=== PATIENT | male | born 1995 | race Caucasian/White ===

== ENCOUNTER 2023-01-12 14:23 | Outpatient (AMB) | payer OTHER, SELFPAY ==
--- NOTE | 2023-01-12 14:30 | MHC.PC.OV ---
Vital Signs 01/12/23 14:33 Height 5 ft 9 in Weight 270 lb 2 oz BMI 39.9 BP 122/88 Blood Pressure Location Lt brachial Position Sitting Pulse 95 Pulse Source Pulse Oximeter Pulse Oximetry (%) 96 Oxygen Delivery Method Room Air Intake Visit Reasons: new patient Allergies No Known Allergies Allergy (Verified 01/12/23 14:44) Medication List - Last Reconciled 01/12/23 by Donaldo Batista PA-C No Known Home Meds Tobacco use date assessed: 01/12/23 Dental Screening Dental Screen Date: 01/12/23 Did you have a dental visit in the last 12 months?: Yes Did you have a dental problem in the last 6 months where you did not have access to dental care?: No Was dental information given to patient?: Patient has dentist HPI new patient HPI Details Patient is a 27-year-old male here today for new patient visit. Patient's past medical history significant for obesity. Has not seen a doctor since his pediatrics office. .. Concern--> over the last 3 years has developed a large umbilical hernia. He reports over the last several months he his umbilicus has been somewhat tender at times. He denies any bowel dysfunction. Vaccine: UTD with COVID , needs Tdap. [facility] Surgical History No pertinent past surgical history Family History Maternal Grandmother Diabetes Social History (Updated 01/12/23 @ 14:48 by Donaldo Batista PA-C) Household Members Other:: Mother Housing: Apartment Are you a primary manager home healthcare to a significant other at home: No Alcohol intake: current Alcohol intake frequency: a few times a month Patient Tobacco Use Status: Never used Tobacco service: No Current occupational status: employed Current occupation: [employer] Questionnaire PHQ-9 Over the last 2 weeks, how often have you been bothered by any of the following problems? 1. Little interest or pleasure in doing things: not at all 2. Feeling down, depressed, or hopeless: not at all 3. Trouble falling or staying asleep, or sleeping too much: not at all 4. Feeling tired or having little energy: not at all 5. Poor appetite or overeating: not at all 6. Feeling bad about yourself - or that you are a failure or have let yourself or your family down: not at all 7. Trouble concentrating on things, such as reading the newspaper or watching television: not at all 8. Moving or speaking so slowly that other people could have noticed. Or the opposite - being so fidgety or restless that you have been moving around a lot more than usual: not at all 9. Thoughts that you would be better off or of hurting yourself in some way: not at all Total score: 0 Depression Screening Interpretation: Negative 50467 - PHQ-9 Billing: Yes Source: Developed by Drs. Tito Rae, Chantel Aquino, Ricky Lawson and colleagues, with an educational renata from [employer]. Thrive Questionnaire Date Thrive assessed: 01/12/23 I am a: Patient What is your living situation today?: I have a steady place to live Within the past 12 months, did the food you bought not last and you didn't have the money to get more?: Never true Within the past 12 months, did you worry whether your food would run out before you got money to buy more?: Never true Do you have trouble paying for medicines?: No Do you have trouble getting transportation to medical appointments?: No Do you have trouble paying your heating and electricity bill?: No Do you have trouble taking care of your child, family member or friend?: No Do you have trouble with day-to-day activities such as bathing, preparing meals, shopping, managing finances, etc.?: No Are you currently unemployed and looking for a job?: No Are you interested in more education?: No Currently or been in a relationship where the following occur: no concerns reported AUDIT C Alcohol Use Questionnaire (AUDIT-C) 1. How often do you have a drink containing alcohol?: 2-3 times a week 2. How many drinks containing alcohol do you have on a typical day when you are drinking?: 1 or 2 3. How often do you have six or more drinks on one occasion?: Never Total Score: 3 TOSIN-7 AMB Questionnaire TOSIN-7 Date TOSIN - 7 assessed: 01/12/23 Feeling nervous, anxious, or on edge: 0 = Not at all Not being able to stop or control worryin = Not at all Worrying too much about different things: 0 = Not at all Trouble relaxin = Not at all Being so restless that it is hard to sit still: 0 = Not at all Becoming easily annoyed or irritable: 0 = Not at all Feeling afraid as if something awful might happen: 0 = Not at all Total TOSIN-7 score (0-4 normal; 5-9 mild; 10-14 moderate; 15-21 severe): 0 Source: Developed by Drs. Tito Rae, Chantel Aquino, Ricky Lawson and colleagues, with an educational renata from [employer]. TOSIN-7 Assessment Billing TOSIN-7 Assessment Tool: TOSIN-7 Assessment 58348 Review of Systems Const Denies headache(s) Eyes Denies loss of vision ENT Denies vertigo, Denies dizziness, Denies headache(s) and Denies sore throat Card Denies chest pain, Denies leg edema and Denies lightheadedness Resp Denies cough, Denies hemoptysis and Denies wheezing GI Denies abdominal pain, Denies melena, Denies constipation, Denies diarrhea and Denies vomiting Denies dysuria, Denies urinary frequency and Denies urinary urgency Musc Denies arthralgias, Denies joint swelling, Denies numbness and Denies tingling Neuro Denies Abnormal speech present, Denies behavioral changes, Denies vertigo, Denies dizziness, Denies headache(s), Denies loss of vision, Denies memory loss, Denies numbness and Denies tingling Psych Denies anxiety, Denies behavioral changes, Denies depression, Denies memory loss and Denies panic attacks Gurmeet/Lymph Denies easy bleeding and Denies easy bruising Aller/Immun Denies wheezing Physical exam (Primary Care) Vital Signs: Last Vital Signs Pulse 95 01/12/23 14:33 BP 122/88 01/12/23 14:33 Pulse Ox 96 01/12/23 14:33 Oxygen Delivery Method Room Air 01/12/23 14:33 BMI result Body Mass Index 39.9 BMI Assessment/Plan discussion: High Tobacco/Smoking Status: Tobacco use Status Tobacco use date assessed 01/12/23 01/12/23 14:40 Patient Tobacco Use Status Never used Tobacco 01/12/23 14:48 PHQ-9: PHQ-9 Score PHQ-9: Total score 0 01/12/23 15:00 Depression Screening Interpretation: Negative Thrive Assessment: Date of Thrive Assessment Date Thrive assessed 01/12/23 01/12/23 14:40 Currently or been in a relationship where the following occur: no concerns reported Const Other: OBESE General: healthy appearing, no acute distress, alert and awake Nutritional Appearance: well nourished Orientation/consciousness: oriented to person, oriented to place and oriented to time HENMT Ears: TM's normal bilaterally General nose exam: Normal nasal mucous membranes and turbinates present Eyes Conjunctivae: conjunctivae normal Sclerae: sclerae normal Pupils: Equal, round and reactive pupils present Neck Neck: Yes no lymphadenopathy and Yes no JVD Thyroid: Thyroid normal Carotids: no bruits Resp Effort & Inspection: normal respiratory effort and not tachypneic Auscultation: no crackles, no rales, no rhonchi and no wheezes Cardio Rate: regular rate Rhythm: regular rhythm Heart sounds: no murmurs and normal S1 and S2 GI Palpation (GI): Soft to palpation, nontender, no hepatomegaly and no splenomegaly Auscultation: normal bowel sounds Abdomen image: 1. LARGE UMBILICAL MASS Skin General skin exam: no rashes or lesions noted and dry skin Neuro General: oriented to person, oriented to place and oriented to time Cranial nerves: Yes Equal, round and reactive pupils present Speech: No Abnormal speech present Gait exam (Neuro): Normal gait present Motor exam (neuro): no tremor noted Extrem Right upper extremity: full ROM Left upper extremity: full ROM Right lower extremity: full ROM; no edema Left lower extremity: full ROM; no edema Psych Mental Status: mental status grossly normal Speech and movement: Normal speech and movement present Affect: normal affect Attitude: cooperative Thought process: Normal thought process present Immunizations Boostrix Tdap Performing Provider: Donaldo Batista PA-C Administered by: Carlotta Eric MA on 01/12/23 15:00 Dose Route Admin Location Lot Number Expiration Date 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 0.5 mL IM Left Deltoid [id number] 03/08/25 [id number] [employer] VIS Given Date VIS Provided VIS Publication Date 01/12/23 Single Vaccine 21 Eligibility Eligibility Date Funding Source Not [facility] Eligible 01/12/23 Private Assessment and Plan Assessment & Plan (1) Umbilical hernia: Code(s): K42.9 - Umbilical hernia without obstruction or gangrene Qualifiers: Obstruction and gangrene presence: with obstruction but without gangrene Qualified Code(s): K42.0 - Umbilical hernia with obstruction, without gangrene Plan: Patient has developed an umbilical hernia over the last 3 years, he does report some tenderness in the area over the last several months. He would like to see general surgeon for possible surgical fix. (2) Obese: Code(s): E66.9 - Obesity, unspecified Qualifiers: Body mass index: BMI 39.0-39.9 Obesity classification: adult class 2 (BMI 35 - 39.9) Obesity type: due to excess calories Serious obesity comorbidity presence: without serious comorbidity Qualified Code(s): E66.09 - Other obesity due to excess calories; Z68.39 - Body mass index [BMI] 39.0-39.9, adult Plan: Patient does understand his BMI is over 30 will work on being more physically active and adapting to better eating habits to reduce his weight (3) Screening for diabetes mellitus (DM): Code(s): Z13.1 - Encounter for screening for diabetes mellitus Orders: Orders Comprehensive [place]. Panel Fast Today Z13.1 - Encounter for screening for diabetes mellitus TDaP Immunization Today K42.0 - Umbilical hernia with obstruction, without gangrene, Z23 - Encounter for immunization Referrals General Surgery Referral K42.0 - Umbilical hernia with obstruction, without gangrene Coding Level of Care Code New Pt Level 4 (00693) Diagnoses Umbilical hernia K42.0 Obstruction and gangrene presence: with obstruction but without gangrene Obese E66.09; Z68.39 Body mass index: BMI 39.0-39.9 Obesity classification: adult class 2 (BMI 35 - 39.9) Obesity type: due to excess calories Serious obesity comorbidity presence: without serious comorbidity Screening for diabetes mellitus (DM) Z13.1 Additional Codes TOSIN-7 Assessment Billing - TOSIN-7 Assessment Tool: TOSIN-7 Assessment 53152 ([id number])
[2023-01-12 14:33] VITALS: BP 122/88; PULSE 95; O2SAT 96; BMI 39.9
== END 2023-01-12 15:03 | disposition home or self-care (01) ==
PROVIDERS: Visit Provider Physician Assistant
DX: K42.0 Umbilical hernia with obstruction, without gangrene (principal); E66.09 Other obesity due to excess calories; Z68.39 Body mass index [BMI] 39.0-39.9, adult; Z23 Encounter for immunization; Z13.1 Encounter for screening for diabetes mellitus
CPT/HCPCS: 90471; 90715; 99204

== ENCOUNTER → 2024-03-12 12:52 | Outpatient (BNVA) | payer OTHER, SELFPAY | PROVIDERS: PCP Nurse Practitioner Family; Visit Provider Surgery ==

== ENCOUNTER → 2024-05-13 09:23 | Outpatient (BNVA) | payer OTHER, SELFPAY | PROVIDERS: PCP Nurse Practitioner Family; Visit Provider Surgery ==

== ENCOUNTER 2025-03-04 15:50 | Outpatient (AMB) | payer OTHER, SELFPAY ==
--- NOTE | 2025-03-04 15:56 | MHC.PC.OV ---
Vital Signs 03/04/25 15:58 Height 5 ft 9 in Weight 247 lb 4 oz BMI 36.5 BP 130/90 H Blood Pressure Location Lt brachial Position Sitting Pulse 87 Pulse Source Pulse Oximeter Temp 97.3 F Temp Source Temporal Artery Scan Pulse Oximetry (%) 97 Oxygen Delivery Method Room Air Intake Visit Reasons: Annual Exam Intake Note: Patient is here today for a physical. Ironmolder Required: No Can Tender: Not Required per policy Accompanied by: Self / Same As Patient Allergies No Known Allergies Allergy (Verified 03/04/25 16:14) Medication List - Last Reconciled 03/04/25 by Nadege Watson PA-C No Known Home Meds Tobacco use date assessed: 03/04/25 Dental Screening Dental Screen Date: 03/04/25 Did you have a dental visit in the last 12 months?: Yes Did you have a dental problem in the last 6 months where you did not have access to dental care?: No Was dental information given to patient?: Patient has dentist HPI Annual Exam HPI Details 29 year old male with no relevant past medical history last seen 02/2024 coming in for annual exam. In review of the notes, patient underwent umbilical hernia repair with Dr. Mcclelland 04/2024. Presenting with a wellness check and management of existing conditions. Hernia repair was performed last year, and the patient reports no recurrence or complications. He avoids heavy lifting to prevent recurrence. The patient experiences weakness in the legs when descending stairs, which is suspected to be related to knee issues. He participates in activities like ball hockey and golf, which may contribute to knee strain. A bone spur was identified on the knee, causing discomfort. The patient uses a knee strap for support during physical activities. The patient was noted to have elevated blood pressure during the visit, with a reading of 138/90 mmHg. He has a family history of hypertension and is advised to monitor his blood pressure at home. vaccines: TdaP is UTD, flu shot declined eye doctor: every two years [facility] Medical History Current smoker on some days LVE (left ventricular enlargement) Surgical History Umbilical hernia (05/02/24) Family History Maternal Grandmother Diabetes Social History Household Members Other:: Mother Housing: House Are you a primary healthcare network pricing consultant to a significant other at home: No Do you presently have visiting nurse or other home services: No Alcohol intake: current Alcohol intake frequency: a few times a month Patient Tobacco Use Status: Current someday Tobacco user Tobacco use type: Cigar (1 sometimes) e-Cigarette/Vaping Use: Never Used Second Hand Smoke Exposure: No service: No Current occupational status: employed 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 1. Little interest or pleasure in doing things: not at all 2. Feeling down, depressed, or hopeless: not at all 3. Trouble falling or staying asleep, or sleeping too much: several days 4. Feeling tired or having little energy: several days 5. Poor appetite or overeating: not at all 6. Feeling bad about yourself - or that you are a failure or have let yourself or your family down: not at all 7. Trouble concentrating on things, such as reading the newspaper or watching television: nearly every day 8. Moving or speaking so slowly that other people could have noticed. Or the opposite - being so fidgety or restless that you have been moving around a lot more than usual: not at all 9. Thoughts that you would be better off or of hurting yourself in some way: not at all Total score: 5 Depression Screening Interpretation: Positive Depression Screening Follow-up: Existing condition and Declines treatment Depression Screening Done: Yes 29904 - PHQ-9 Billing: Yes Source: Developed by Drs. Tito Rae, Chantel Aquino, Ricky Lawson and colleagues, with an educational renata from [employer]. Thrive Questionnaire Date Thrive assessed: 03/02/25 I am a: Patient What is your living situation today?: I have a steady place to live Within the past 12 months, did the food you bought not last and you didn't have the money to get more?: Never true Within the past 12 months, did you worry whether your food would run out before you got money to buy more?: Never true Do you have trouble paying for medicines?: No Do you have trouble getting transportation to medical appointments?: No Do you have trouble paying your heating and electricity bill?: No Do you have trouble taking care of your child, family member or friend?: No Do you have trouble with day-to-day activities such as bathing, preparing meals, shopping, managing finances, etc.?: No Are you currently unemployed and looking for a job?: No Are you interested in more education?: No Please select the resources that you would like help with: None Currently or been in a relationship where the following occur: No concerns reported THRIVE Score: 0 AUDIT C Alcohol Use Questionnaire (AUDIT-C) 1. How often do you have a drink containing alcohol?: 2-4 times a month 2. How many drinks containing alcohol do you have on a typical day when you are drinking?: 3 or 4 3. How often do you have six or more drinks on one occasion?: Never Total Score: 3 TOSIN-7 AMB Questionnaire TOSIN-7 Date TOSIN - 7 assessed: 03/04/25 Feeling nervous, anxious, or on edge: 1 = Several days Not being able to stop or control worryin = Several days Worrying too much about different things: 1 = Several days Trouble relaxin = Several days Being so restless that it is hard to sit still: 2 = More than half the days Becoming easily annoyed or irritable: 0 = Not at all Feeling afraid as if something awful might happen: 0 = Not at all Total TOSIN-7 score (0-4 normal; 5-9 mild; 10-14 moderate; 15-21 severe): 6 Source: Developed by Drs. Tito Rae, Chantel Aquino, Ricky Lawson and colleagues, with an educational renata from [employer]. TOSIN-7 Assessment Billing TOSIN-7 Assessment Tool: TOSIN-7 Assessment 81204 Review of Systems Const Denies body aches, Denies fatigue, Denies fever(s), Denies frequent falls, Denies headache(s) and Denies weakness Eyes Reports no additional complaints and Denies change in vision ENT Denies dysphagia, Denies dizziness, Denies facial pain, Denies headache(s), Denies nasal congestion and Denies odynophagia Card Denies chest pain, Denies syncope, Denies irregular heart rhythm, Denies leg edema, Denies lightheadedness and Denies dyspnea Resp Denies cough and Denies dyspnea GI Denies abdominal pain, Denies constipation, Denies dysphagia, Denies dyspepsia, Denies diarrhea, Denies nausea, Denies odynophagia and Denies vomiting Denies dysuria, Denies urinary frequency, Denies urinary hesitancy and Denies urinary urgency Musc Denies back pain and Denies myalgias Skin/Breast Reports system reviewed and no additional complaints, except as documented Neuro Denies dizziness, Denies syncope, Denies frequent falls, Denies headache(s) and Denies weakness Psych Reports no additional complaints Endo Denies fatigue Physical exam (Primary Care) Vital Signs: Last Vital Signs Temp 97.3 F 03/04/25 15:58 Pulse 87 03/04/25 15:58 BP 130/90 H 03/04/25 15:58 Pulse Ox 97 03/04/25 15:58 Oxygen Delivery Method Room Air 03/04/25 15:58 BMI result Body Mass Index 36.5 Tobacco/Smoking Status: Tobacco use Status Tobacco use date assessed 03/04/25 03/04/25 16:03 Patient Tobacco Use Status Current someday Tobacco 03/04/25 16:03 Tobacco use type Cigar (1 sometimes) 03/04/25 16:03 e-Cigarette/Vaping Use Never Used 03/04/25 16:03 PHQ-9: PHQ-9 Score PHQ-9: Total score 5 03/04/25 16:31 Depression Screening Interpretation: Positive Depression Screening Follow-up: Existing condition and Declines treatment Thrive Assessment: Date of Thrive Assessment Date Thrive assessed 03/02/25 03/04/25 16:03 Currently or been in a relationship where the following occur: No concerns reported Const General: cooperative, healthy appearing, comfortable and no acute distress Orientation/consciousness: patient oriented x3 HENMT Head: Yes normocephalic Ears: hearing grossly normal bilaterally, external ears normal, TM's normal bilaterally and EAC's normal General nose exam: Normal external nose present Face and sinus: Yes normal facial exam and Yes sinuses nontender Mouth: Normal oral and palatal mucosa present and tongue normal Throat: Yes posterior oropharynx normal Eyes General: appearance normal, both eyes and all related structures Conjunctivae: conjunctivae normal Pupils: Equal, round and reactive pupils present EOM: EOMs intact bilaterally and No Nystagmus present Neck Neck: Yes normal visual inspection, Yes full ROM and Yes no lymphadenopathy Chest Chest palpation & inspection: normal inspection of the chest Resp Effort & Inspection: normal respiratory effort Auscultation: clear to auscultation bilaterally, no crackles, no rales, no rhonchi, no wheezes and breath sounds present Cardio Rate: regular rate Rhythm: regular rhythm Peripheral pulses: radial pulses present and dorsalis pedis present GI Inspection: Yes normal to inspection and No Abdominal wall edema Palpation (GI): Soft to palpation, not firm and nontender Auscultation: normal bowel sounds Rectal Exam - Male: Yes deferred General: Yes no CVA tenderness Back/Spine/Pelvis Back: no CVA tenderness Skin General skin exam: no rashes or lesions noted Neuro General: patient oriented x3 Cranial nerves: Yes Equal, round and reactive pupils present, Yes Midline tongue present, Yes Ability to bilaterally elevate shoulders present and No Nystagmus present Gait exam (Neuro): Normal gait present Extrem General: Yes normal to inspection, Yes full ROM, No no pedal edema and No edema Psych Speech and movement: Normal speech and movement present Affect: normal affect Insight: Good insight present (Psych) Judgement: Good judgement present (Psych) Coding Level of Care Code Est Pt Prev Care 18-39y(76147) Diagnoses Annual physical exam Z00.00 Right knee pain M25.561 Elevated blood pressure reading without diagnosis of hypertension R03.0 Obesity (BMI 30-39.9) E66.9 Additional Codes TOSIN-7 Assessment Billing - TOSIN-7 Assessment Tool: TOSIN-7 Assessment 02291 ([id number]) PHQ-9 - 23158 - PHQ-9 Billing: Yes ([id number]) Assessment & Plan Assessment & Plan (1) Annual physical exam: Code(s): Z00.00 - Encounter for general adult medical examination without abnormal findings Category: Medical Plan: Patient is up-to-date on all recommended routine screenings and vaccinations for his age. Declines flu shot today. Ordered for updated blood work to be completed before next appointment. Healthy diet and regular exercise is encouraged. Plan to follow up in 2 months or sooner as needed. (2) Right knee pain: Code(s): M25.561 - Pain in right knee Category: Medical Plan: Patient complaining of right knee pain declining x-ray or physical therapy today. Continue with activity modification and Tylenol as needed. (3) Elevated blood pressure reading without diagnosis of hypertension: Code(s): R03.0 - Elevated blood-pressure reading, without diagnosis of hypertension Category: Medical Plan: Blood pressure elevated in the office today 130/90 patient advised to take blood pressure at home and bring log to next visit. Follow up in 2 months. Discussed avoidance of salt and encouraged increase activity and weight loss (4) Obesity (BMI 30-39.9): Code(s): E66.9 - Obesity, unspecified Category: Medical Plan: Healthy diet and regular exercise is encouraged. Plan This note was constructed using voice recognition software. While every effort has been made to ensure accuracy and high school math teacher, still areas may have been included sometimes these areas may affect the content or meeting of the given symptoms. Total time spent caring for the patient today was 30 minutes. This includes time spent before the visit reviewing the chart, time spent during the visit, and time spent after the visit and documentation. Patient was informed and verbally consented to the use of an ambient scribe for clinic note documentation during this visit. Orders: Orders Comprehensive Met. Panel Today Z00.00 - Encounter for general adult medical examination without abnormal findings, Z13.1 - Encounter for screening for diabetes mellitus Complete Blood Count Auto Diff Today Z13.0 - Encounter for screening for diseases of the blood and blood-forming organs and certain disorders involving the immune mechanism TSH reflex Free T4 Today Z13.29 - Encounter for screening for other suspected endocrine disorder Lipid Panel Today Z13.220 - Encounter for screening for lipoid disorders Vitamin B12 and Folate Today Z13.21 - Encounter for screening for nutritional disorder Vitamin D 25-OH Total Today Z13.21 - Encounter for screening for nutritional disorder
[2025-03-04 15:58] VITALS: BP 130/90; PULSE 87; TEMP 36.3; O2SAT 97; BMI 36.5
--- OUTSIDE RECORDS SUMMARY | 2025-03-04 18:47 | XMS_ITS | Encounter Summary ---
Author Organization [facility] Address [address] [place] [phone] Phone Care Team Providers Care Volunteer Manager Name Role Phone Nelli Ryder MD Primary Care Provider Unava ilable Encounter Details Date Type Department Care Team (Late st Contact Info) Description 10/17/2016 Documentation EM Family Medicine [address] [place] [address] Family Medicine, Physician [address] [place], [place] [id number] Social History Tobacco Use Types Packs/Day Years Used Date Smoking Tobacco: Never Comments:Never smoker Sex and Gender Information Value Date Recorded Sex Assigned at Not on file Legal Sex Male 5:11 PM EDT Gender Identity Not on file Sexual Orientation Not on file documented as of this encounter Plan of Treatment Not on file documented as of this encounter Visit Diagnoses Not on filedocumented in this encounter Care Teams Volunteer Manager Relationship Specialty Start Date End Date Nelli Ryder MD PCP - General 01/06/17 documented as of this encounter
--- OUTSIDE RECORDS SUMMARY | 2025-03-04 18:47 | XMS_ITS | Clinical Summary ---
Author Organization [facility] Address [address] [place] [phone] Phone Care Team Providers Care Cleat Thrower Name Role Phone Nelli Ryder MD Primary Care Provider Unava ilable Immunizations Immunization Administration Dates Next Due DTP 04/30/1997, 6,02/28/1996,12/26 DTaP 5 12/08/2000 HPV, Quadrivalent 02/03/2014,12/19/2012,11/02/19 12 Hep A, Adult 02/09/2016 Hep A, ped/adol 02/03/2014 Hep B, ped/adol 04/29/1996,1995 Hib (PRP-T) 03/03/1997, 6,02/28/1996,12/26 IPV 12/08/2000 Influenza, injectable, quadr ivalent, preservative free 02/09/2016,02/03/2014 MMR 11/25/1999,11/04/1996 Meningococcal Conj (Menactra) MCV4P 02/09/2016,0 12/05/2007 OPV 04/29/1996,02/28/1996,1995 Tdap 12/05/2007 Varicella 12/05/2007,11/04/1996 Family History Relation Name Status Comments Father Alive Father: Mother Alive Mother: Alive a nd well Other Family history of Diabetes mellitus, No family history of Strabismus, No family history of Cancer, Family history of Asthma, , Family history of Deafness, Family history of Developmental dislocation of hip, Family history of Obesity, Family history of ADD/ADHD, No family history of Migraines, No family history of Seizure disorder, Family history of Hyperlipidemia Sister 1 Alive Sister: Alive a nd well, Alive and well Sister 2 Alive Sister: Alive a nd well, Alive and well Social History Tobacco Use Types Packs/Day Years Used Date Smoking Tobacco: Never Comments:Never smoker Sex and Gender Information Value Date Recorded Sex Assigned at Not on file Legal Sex Male 5:11 PM EDT Gender Identity Not on file Sexual Orientation Not on file Last Filed Vital Signs Vital Sign Reading Time Taken Comments Blood Pressure 135/85 07/22/2016 12:00 AM EST Pulse 86 02/09/2016 12:00 AM EDT Temperature 37.3 C (99.2 F) 02/09/2016 12:00 AM EDT Respiratory Rate - - Oxygen Saturation - - Inhaled Oxygen Concentration - - Weight 122 kg (270 lb) 07/22/2016 12:00 AM EST Height 172.1 cm (5' 7.75 ) 07/22/2016 12:[address] Body Mass Index 41.35 07/22/2016 12:00 AM EST Plan of Treatment Health Maintenance Due Date Last Done Comments Hepatitis B Vaccines (3 of 3 - 3-dose series) 06/24/1996 04/29/1996, 1995 DTaP,Tdap,and Td Vaccines (7 - Td or Tdap) 12/04/2017 12/05/2007, 12/08/2000, 04/30/1997, Additional history exists Influenza Vaccines (#1) 2024 02/09/2016, 02/03 COVID-19 Vaccine ( season) 2025 HIB Vaccines Completed 03/03/1997, 06/1995, 02/28/1996, Additional history exists MMR Vaccines Completed 11/25/1999, 11/04/1996 IPV Vaccines Completed 12/08/2000, 06/1995, 02/28/1996, Additional history exists Varicella Vaccines Completed 12/05/2007, 11/04/1996 HPV Vaccines Completed 02/03/2014, 11/27, 11/02/2011 Hepatitis A Vaccines Completed 02/09/2016, 02/04/20 14 Meningococcal Vaccine Aged Out 02/09/2016, 008 No longer eligible based on patient's age to complete this topic Men B Vaccine Aged Out No longer elig ible based on patient's age to complete this topic Pneumococcal Vaccine Aged Out No long er eligible based on patient's age to complete this topic Care Teams Cleat Thrower Relationship Specialty Start Date End Date Nelli Ryder MD PCP - General 01/06/17
--- OUTSIDE RECORDS SUMMARY | 2025-03-04 18:47 | XMS_ITS | Encounter Summary ---
Author Organization [facility] Address [address] [place] [phone] Phone Care Team Providers Care Fundraiser Name Role Phone Nelli Ryder MD Primary Care Provider Unava ilable Encounter Details Date Type Department Care Team (Late st Contact Info) Description 01/12/2017 Conversion Encounter [facility] - [address] [phone] Social History Tobacco Use Types Packs/Day Years [...] on filedocumented in this encounter Care Teams Fundraiser Relationship Specialty Start Date End Date Nelli Ryder MD PCP - General 01/06/17 documented as of this encounter
== END 2025-03-04 16:44 | disposition home or self-care (01) ==
LOC: HO.HMCH 15:51
PROVIDERS: PCP Nurse Practitioner Family
DX: Z00.00 Encounter for general adult medical examination without abnormal findings (principal); M25.561 Pain in right knee; E66.9 Obesity, unspecified; Z68.36 Body mass index [BMI] 36.0-36.9, adult; R03.0 Elevated blood-pressure reading, without diagnosis of hypertension

== ENCOUNTER → 2025-03-04 15:50 | Outpatient (BNVA) | payer OTHER, SELFPAY | PROVIDERS: PCP Nurse Practitioner Family | DX: Z00.00 Encounter for general adult medical examination without abnormal findings (principal); R53.1 Weakness; M25.561 Pain in right knee; R03.0 Elevated blood-pressure reading, without diagnosis of hypertension; E66.9 Obesity, unspecified; Z68.36 Body mass index [BMI] 36.0-36.9, adult | CPT/HCPCS: 96127 ==

== ENCOUNTER 2025-05-07 15:54 | Outpatient (AMB) | payer OTHER, SELFPAY ==
--- NOTE | 2025-05-07 15:57 | MHC.PC.OV ---
Vital Signs 05/07/25 15:59 05/07/25 16:25 Height 5 ft 9 in Weight 252 lb 4 oz BMI 37.2 BP 132/70 142/92 H Blood Pressure Location Lt brachial Lt brachial Position Sitting Sitting Temp 97.1 F Temp Source Temporal Artery Scan Intake Visit Reasons: 2 month f/u Kettle Cook Required: No [employer] Advanced Operator Maintainer: Not Required per policy Accompanied by: Self / Same As Patient Allergies No Known Allergies Allergy (Verified 05/07/25 16:16) Medication List - Last Reconciled 05/07/25 by Nadege Watson PA-C No Known Home Meds Tobacco use date assessed: 05/07/25 Dental Screening Dental Screen Date: 03/04/25 HPI 2 month f/u HPI Details 29 year old male with no relevant past medical history last seen 02/2025 coming in for follow up. Presenting for follow-up on his blood pressure. He reports his home blood pressure readings have been very high. He notes a history of high blood pressure, in the prehypertension range, on a physical exam for football at age 16, suggesting a strong genetic component. He reports playing pickleball 3-4 times a week, including in a competitive league. He has been avoiding adding salt to his food but acknowledges that many processed and canned foods contain a lot of salt. [facility] Medical History Current smoker on some days LVE (left ventricular enlargement) Surgical History Umbilical hernia (05/02/24) Family History Maternal Grandmother Diabetes Social History Household Members Other:: Mother Housing: House Are you a primary direct support professional caregiver to a significant other at home: No Do you presently have visiting nurse or other home services: No Alcohol intake: current Alcohol intake frequency: a few times a month Patient Tobacco Use Status: Former Tobacco user Tobacco use type: Cigar (1 sometimes) e-Cigarette/Vaping Use: Never Used Second Hand Smoke Exposure: Yes service: No Current occupational status: employed 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 1. Little interest or pleasure in doing things: not at all 2. Feeling down, depressed, or hopeless: not at all 3. Trouble falling or staying asleep, or sleeping too much: not at all 4. Feeling tired or having little energy: more than half the days 5. Poor appetite or overeating: not at all 6. Feeling bad about yourself - or that you are a failure or have let yourself or your family down: not at all 7. Trouble concentrating on things, such as reading the newspaper or watching television: several days 8. Moving or speaking so slowly that other people could have noticed. Or the opposite - being so fidgety or restless that you have been moving around a lot more than usual: not at all 9. Thoughts that you would be better off or of hurting yourself in some way: not at all Total score: 3 Depression Screening Interpretation: Positive Depression Screening Done: Yes Source: Developed by Drs. Tito Rae, Chantel Aquino, Ricky Lawson and colleagues, with an educational renata from [employer]. Thrive Questionnaire Date Thrive assessed: 03/02/25 I am a: Patient What is your living situation today?: I have a steady place to live Within the past 12 months, did the food you bought not last and you didn't have the money to get more?: Never true Within the past 12 months, did you worry whether your food would run out before you got money to buy more?: Never true Do you have trouble paying for medicines?: No Do you have trouble getting transportation to medical appointments?: No Do you have trouble paying your heating and electricity bill?: No Do you have trouble taking care of your child, family member or friend?: No Do you have trouble with day-to-day activities such as bathing, preparing meals, shopping, managing finances, etc.?: No Are you currently unemployed and looking for a job?: No Are you interested in more education?: No Please select the resources that you would like help with: None Currently or been in a relationship where the following occur: No concerns reported THRIVE Score: 0 AUDIT C Alcohol Use Questionnaire (AUDIT-C) 1. How often do you have a drink containing alcohol?: 2-4 times a month 2. How many drinks containing alcohol do you have on a typical day when you are drinking?: 3 or 4 3. How often do you have six or more drinks on one occasion?: Less than monthly Total Score: 4 TOSIN-7 AMB Questionnaire TOSIN-7 Date TOSIN - 7 assessed: 03/04/25 Feeling nervous, anxious, or on edge: 0 = Not at all Not being able to stop or control worryin = Not at all Worrying too much about different things: 0 = Not at all Trouble relaxin = Not at all Being so restless that it is hard to sit still: 0 = Not at all Becoming easily annoyed or irritable: 0 = Not at all Feeling afraid as if something awful might happen: 0 = Not at all Total TOSIN-7 score (0-4 normal; 5-9 mild; 10-14 moderate; 15-21 severe): 0 Source: Developed by Drs. Tito Rae, Chantel Aquino, Ricky Lawson and colleagues, with an educational renata from [employer]. Review of Systems Const Denies body aches, Denies chills, Denies fever(s), Denies headache(s) and Denies poor appetite Eyes Reports no additional complaints ENT Denies dizziness and Denies headache(s) Card Denies chest pain, Denies lightheadedness and Denies dyspnea Resp Denies dyspnea GI Denies abdominal pain, Denies nausea and Denies vomiting Reports no additional complaints Musc Reports no additional complaints and Denies abnormal gait Skin/Breast Reports system reviewed and no additional complaints, except as documented Neuro Denies abnormal gait, Denies dizziness and Denies headache(s) Psych Reports no additional complaints Physical exam (Primary Care) Vital Signs: Last Vital Signs Temp 97.1 F 05/07/25 15:59 BP 132/70 05/07/25 15:59 BMI result Body Mass Index 37.2 Tobacco/Smoking Status: Tobacco use Status Tobacco use date assessed 05/07/25 05/07/25 15:59 Patient Tobacco Use Status Former Tobacco user 05/07/25 16:04 Tobacco use type Cigar (1 sometimes) 05/07/25 15:59 e-Cigarette/Vaping Use Never Used 05/07/25 15:59 PHQ-9: PHQ-9 Score PHQ-9: Total score 3 05/07/25 15:59 Depression Screening Interpretation: Positive Thrive Assessment: Date of Thrive Assessment Date Thrive assessed 03/02/25 05/07/25 15:59 Currently or been in a relationship where the following occur: No concerns reported Const General: cooperative, healthy appearing, comfortable and no acute distress Orientation/consciousness: patient oriented x3 HENMT Head: Yes normocephalic Ears: hearing grossly normal bilaterally General nose exam: Normal external nose present Eyes General: appearance normal, both eyes and all related structures Conjunctivae: conjunctivae normal Neck Neck: Yes full ROM and Yes no lymphadenopathy Resp Effort & Inspection: normal respiratory effort Auscultation: clear to auscultation bilaterally, no crackles, no rales, no rhonchi and no wheezes Cardio Rate: regular rate Rhythm: regular rhythm Skin General skin exam: no rashes or lesions noted Neuro General: patient oriented x3 Gait exam (Neuro): Normal gait present Extrem General: Yes normal to inspection, Yes full ROM and No edema Psych Affect: normal affect Attitude: cooperative Insight: Good insight present (Psych) Judgement: Good judgement present (Psych) Coding Level of Care Code Est Pt Level 3 (79956) Diagnoses Obesity (BMI 30-39.9) E66.9 Hypertension I10 Assessment & Plan Assessment & Plan (1) Obesity (BMI 30-39.9): Code(s): E66.9 - Obesity, unspecified Category: Medical Plan: Healthy diet and regular exercise is encouraged. (2) Hypertension: Code(s): I10 - Essential (primary) hypertension Category: Medical Plan: The patient's blood pressure is elevated at home and in the office (142/92 mmHg), with a concerningly high diastolic number. A strong genetic component is suspected due to a history of high blood pressure at age 16. Recommended starting lisinopril 10 mg daily to manage blood pressure and protect the kidneys. The patient was counseled on potential side effects, including a dry cough, and the rare but emergent risk of lip or tongue swelling (angioedema), and he agreed to start the medication. He will continue monitoring his blood pressure at home three times a week and continue dietary modifications such as avoiding salt. Blood work is pending and should be completed before the next visit. A follow-up appointment is scheduled in three months. Plan This note was constructed using voice recognition software. While every effort has been made to ensure accuracy and contract manager, still areas may have been included sometimes these areas may affect the content or meeting of the given symptoms. Total time spent caring for the patient today was 30 minutes. This includes time spent before the visit reviewing the chart, time spent during the visit, and time spent after the visit and documentation. Patient was informed and verbally consented to the use of an ambient scribe for clinic note documentation during this visit. Medications: New lisinopril 10 mg PO DAILY 90 tabs 0RF
[2025-05-07 15:59] VITALS: BP 132/70; TEMP 36.2; BMI 37.2
[2025-05-07 16:25] VITALS: BP 142/92
--- OUTSIDE RECORDS SUMMARY | 2025-05-08 00:36 | XMS_ITS | Encounter Summary ---
Author Organization [facility] Address [address] [place] [phone] Phone Care Team Providers Care Nurse Tech Name Role Phone Nelli Ryder MD Primary Care Provider Unava ilable Encounter Details Date Type Department Care Team (Late st Contact Info) Description 10/17/2016 Documentation EM Family Medicine [address] [place] [address] Family Medicine, Physician [address] [place], [place] [phone] Social History Tobacco Use Types Packs/Day Years [...] on filedocumented in this encounter Care Teams Nurse Tech Relationship Specialty Start Date End Date Nelli Ryder MD PCP - General 01/06/17 documented as of this encounter
--- OUTSIDE RECORDS SUMMARY | 2025-05-08 00:36 | XMS_ITS | Clinical Summary ---
Author Organization [facility] Address [address] [place] [phone] Phone Care Team Providers Care Bushel Girl Name Role Phone Nelli Ryder MD Primary [...] age to complete this topic Care Teams Bushel Girl Relationship Specialty Start Date End Date Nelli Ryder MD PCP - General 01/06/17
--- OUTSIDE RECORDS SUMMARY | 2025-05-08 00:36 | XMS_ITS | Encounter Summary ---
Author Organization [facility] Address [address] [place] [phone] Phone Care Team Providers Care Scrap Crane Operator Name Role Phone Nelli Ryder MD Primary Care Provider Unava ilable Encounter Details Date Type Department Care Team (Late st Contact Info) Description 01/12/2017 Conversion Encounter [facility] - [address] [phone] Social History Tobacco Use Types Packs/Day Years [...] on filedocumented in this encounter Care Teams Scrap Crane Operator Relationship Specialty Start Date End Date Nelli Ryder MD PCP - General 01/06/17 documented as of this encounter
== END 2025-05-07 16:36 | disposition home or self-care (01) ==
LOC: HO.HMCH 15:55
DX: I10 Essential (primary) hypertension (principal); E66.9 Obesity, unspecified; Z68.37 Body mass index [BMI] 37.0-37.9, adult